=== PATIENT | male | born 1990 | race Caucasian/White ===

== ENCOUNTER 2017-07-01 03:19 | Emergency (ER) | payer SELFPAY ==
[~2017-07-01] VITALS: Ht 165.1 cm; Wt 55.8 kg
[~2017-07-01 03:19] MED LIST: HUMALOG100 U/ML SC; LANTUS SOLOS100 U/M1 SC; NEU300 PO; NOR10T PO
[2017-07-01 03:26] VITALS: Ht 165.1 cm; Wt 55.8 kg
[2017-07-01 04:26] LABS: BASOPHIL % 0.6 % (0-2); PLATELET COUNT 381 x10^3mcL (130-400); RED CELL DISTRIBUTION WIDTH 13.2 % (11.5-14.5)
[2017-07-01 04:35] LABS: CALCIUM 8.9 mg/dL (8.5-10.1); CHLORIDE SERUM 105 mmol/L (98-107); CREATININE SERUM 0.5 mg/dL (0.7-1.3); GFR1 > 60 mL/min; GLUCOSE SERUM 135 mg/dL (74-106); POTASSIUM SERUM 3.6 mmol/L (3.5-5.1); SODIUM SERUM 142 mmol/L (136-145)
[2017-07-01 04:37] LABS: AMPHETAMINE QUAL UR NONE DETECTED (NEG <=1000)
[2017-07-01 04:41] LABS: ALKALINE PHOSPHATASE 118 U/L (46-116); ALT/SGPT 45 U/L (16-63); AST/SGOT 27 U/L (15-37); BILIRUBIN TOTAL 0.15 mg/dL (0.20-1.00); LIPASE 173 IU/L (73-393); TOTAL PROTEIN, SERUM 6.7 g/dL (6.4-8.2)
[2017-07-01 04:42] LABS: ALBUMIN 3.3 g/dL (3.4-5.0)
[2017-07-01 06:00] VITALS: BP 121/88
== END 2017-07-01 06:45 | disposition home or self-care (01) ==
LOC: ED 03:19
PROVIDERS: Emergency Medicine
DX: R10.13 Epigastric pain (principal); R11.10 Vomiting, unspecified; R19.7 Diarrhea, unspecified; I10 Essential (primary) hypertension; E11.9 Type 2 diabetes mellitus without complications
CPT/HCPCS: 36600; 82962; J0500; J1885; J2405; J7030

== ENCOUNTER 2019-11-20 22:36 | Emergency (ER) | payer OTHER, SELFPAY ==
[~2019-11-20] VITALS: Ht 165.1 cm; Wt 59.0 kg
[2019-11-20 22:39] VITALS: Ht 165.1 cm; Wt 59.0 kg
[2019-11-21 01:36] VITALS: BP 101/74
[2019-11-21 01:42] LABS: BASOPHIL % 0.8 % (0-2); PLATELET COUNT 270 x10^3mcL (130-400); RED CELL DISTRIBUTION WIDTH 13.6 % (11.5-14.5)
[2019-11-21 01:49] LABS: CALCIUM 9.2 mg/dL (8.5-10.1); CARBON DIOXIDE 26.5 mmol/L (21-32); CHLORIDE SERUM 97 mmol/L (98-107); CREATININE SERUM 0.8 mg/dL (0.7-1.3); GFR1 > 60 mL/min; GLUCOSE SERUM 450 mg/dL (74-106); POTASSIUM SERUM 4.3 mmol/L (3.5-5.1); SODIUM SERUM 133 mmol/L (136-145)
[2019-11-21 01:54] LABS: ALBUMIN 3.5 g/dL (3.4-5.0); ALKALINE PHOSPHATASE 179 U/L (46-116); ALT/SGPT 104 U/L (16-63); AST/SGOT 28 U/L (15-37); BILIRUBIN TOTAL 0.3 mg/dL (0.20-1.00); C REACTIVE PROTEIN 5.4 mg/dL (<=0.9); LACTIC DEHYDROGENASE (LDH) 171 U/L (100-190); TOTAL PROTEIN, SERUM 7.5 g/dL (6.4-8.2)
[2019-11-21 02:08] LABS: microscopic required? NO
[2019-11-21 02:12] LABS: urine erythrocyte NEGATIVE (NEGATIVE)
== END 2019-11-21 02:26 | disposition left against medical advice (07) ==
LOC: ED 22:36
PROVIDERS: Emergency Medicine
DX: B34.9 Viral infection, unspecified (principal); Z20.828 Contact with and (suspected) exposure to other viral communicable diseases
CPT/HCPCS: 36600; 83880; 85378; U0003-CS

== ENCOUNTER 2019-11-23 00:15 | Emergency (ER) | payer OTHER, SELFPAY ==
[2019-11-23 01:10] LABS: BASOPHIL % 1.1 % (0-2); PLATELET COUNT 290 x10^3mcL (130-400); RED CELL DISTRIBUTION WIDTH 12.8 % (11.5-14.5)
[2019-11-23 02:28] LABS: CARBON DIOXIDE 25.2 mmol/L (21-32); CHLORIDE SERUM 94 mmol/L (98-107); CREATININE SERUM 1.4 mg/dL (0.7-1.3); GFR1 > 60 mL/min; POTASSIUM SERUM 3.6 mmol/L (3.5-5.1); SODIUM SERUM 130 mmol/L (136-145)
[2019-11-23 02:29] LABS: ALBUMIN 3.4 g/dL (3.4-5.0); BILIRUBIN TOTAL 0.2 mg/dL (0.20-1.00); CALCIUM 9.2 mg/dL (8.5-10.1); TOTAL PROTEIN, SERUM 7.1 g/dL (6.4-8.2)
[2019-11-23 02:30] LABS: ALKALINE PHOSPHATASE 179 U/L (46-116); ALT/SGPT 83 U/L (16-63); AST/SGOT 38 U/L (15-37); LIPASE 148 IU/L (73-393)
[2019-11-23 02:31] LABS: GLUCOSE SERUM 742 mg/dL (74-106)
[2019-11-23 06:17] VITALS: BP 103/67
== END 2019-11-23 06:17 | disposition home or self-care (01) ==
LOC: ED 00:15
PROVIDERS: Emergency Medicine
DX: E11.00 Type 2 diabetes mellitus with hyperosmolarity without nonketotic hyperglycemic-hyperosmolar coma (NKHHC) (principal); E86.0 Dehydration; R10.9 Unspecified abdominal pain
CPT/HCPCS: 36600; 82962; 83880; J1815; J1885; J3010; J7030; Q0092

== ENCOUNTER 2020-01-21 11:16 | Emergency (ER) | payer OTHER ==
[~2020-01-21] VITALS: Ht 165.1 cm; Wt 59.0 kg
[2020-01-21 11:26] VITALS: BP 111/74; Ht 165.1 cm; Wt 59.0 kg
== END 2020-01-21 12:28 | disposition left against medical advice (07) ==
LOC: ED 11:16
DX: Z53.21 Procedure and treatment not carried out due to patient leaving prior to being seen by health care provider (principal)
CPT/HCPCS: 82962

== ENCOUNTER 2020-05-29 08:11 | Emergency (ER) | payer OTHER ==
[~2020-05-29] VITALS: Ht 165.1 cm; Wt 60.3 kg
[2020-05-29 08:25] VITALS: Ht 165.1 cm; Wt 60.3 kg
[2020-05-29] MEDS ORDERED: AUGMENTIN 875-1 EACH PO (09:02)
[2020-05-29] MEDS ORDERED: BACO TOP (09:02)
[2020-05-29] MEDS ORDERED: BACTRIM DS1 TAB PO (09:02)
[2020-05-29] MEDS ORDERED: IBU600 M2 PO (09:03)
[2020-05-29 09:30] VITALS: BP 128/79
== END 2020-05-29 09:30 | disposition home or self-care (01) ==
LOC: ED 08:11
DX: H60.502 Unspecified acute noninfective otitis externa, left ear (principal); H70.001 Acute mastoiditis without complications, right ear; F17.210 Nicotine dependence, cigarettes, uncomplicated; I10 Essential (primary) hypertension; E11.40 Type 2 diabetes mellitus with diabetic neuropathy, unspecified
CPT/HCPCS: 99406